=== PATIENT | male | born 1935 | race Caucasian/White ===

== ENCOUNTER 2016-07-01 10:26 | Emergency (ER) | payer OTHER ==
[~2016-07-01] VITALS: Ht 182.9 cm; Wt 82.0 kg
[~2016-07-01 10:26] MED LIST: DILT240C77 PO; HYDR25TA6 PO; LISI-170 PO; LOVA40TA2 PO
[2016-07-01 13:31] LABS: BLOOD UREA NITROGEN 34 mg/dL (7-18)
[2016-07-01 14:11] VITALS: BP 165/80
== END 2016-07-01 16:32 | disposition home or self-care (01) ==
LOC: ED 15:55
DX: R20.9 Unspecified disturbances of skin sensation (principal); I11.9 Hypertensive heart disease without heart failure
CPT/HCPCS: 36415; 80048; 82040; 85025; 85610; 85730; 93922; 93925; 99285

== ENCOUNTER 2016-08-30 05:34 | Emergency (ER) | payer OTHER ==
[~2016-08-30] VITALS: Ht 182.9 cm; Wt 81.8 kg
[2016-08-30 06:42] LABS: BLOOD UREA NITROGEN 29 mg/dL (7-18)
[2016-08-30 06:47] VITALS: BP 160/80
== END 2016-08-30 07:45 | disposition home or self-care (01) ==
LOC: ED 06:18
DX: N30.90 Cystitis, unspecified without hematuria (principal); N39.0 Urinary tract infection, site not specified; I10 Essential (primary) hypertension
CPT/HCPCS: 36415; 80048; 81001; 82040; 85025; 87086; 99284

== ENCOUNTER → 2016-10-15 | Outpatient (CLI) | payer OTHER ==
[2016-10-15 06:20] LABS: HEMATOCRIT 40.3 % (39.2-51.8); HEMOGLOBIN 13.8 g/dL (13.7-18.0); WHITE BLOOD COUNT 8.1 x10^3/uL (3.4-10)
[2016-10-15 06:33] LABS: ASPARTATE AMINO TRANSFERASE 19 U/L (15-37); BLOOD UREA NITROGEN 33 mg/dL (7-18)
== END | disposition home or self-care (01) ==
LOC: LAB 05:50
PROVIDERS: ATTEND Internal Medicine
DX: E78.2 Mixed hyperlipidemia (principal); I12.9 Hypertensive chronic kidney disease with stage 1 through stage 4 chronic kidney disease, or unspecified chronic kidney disease; N18.3 Chronic kidney disease, stage 3 (moderate); M10.9 Gout, unspecified
CPT/HCPCS: 36415; 80053; 80061; 82306; 85025

== ENCOUNTER 2018-03-29 13:57 | Inpatient (IN) | payer MEDICARE, OTHER ==
[~2018-03-29] VITALS: Ht 182.9 cm; Wt 75.3 kg
[~2018-03-29 13:57] MED LIST changes: +CLOP300T5 PO; +DILT120C64 PO; +FOLI-17 PO; +LOSA1TAB22 PO; +LOSA50TA14 PO; +PRAV40TA2 PO; +PRED20TA PO; +THIA100T67 PO
[2018-03-29] MEDS ORDERED: MORPHINE SULFATE 4 MG/ML, 1ML IVPush STA (14:06)
--- NOTE | 2018-03-29 14:22 | NUR ---
PT TO ED VIA [facility] FOR ABD PAIN X 2 MONTHS. [facility]. PT STATES LBM YESTERDAY BUT HE MAY BE CONSTIPATED. PA TO BEDSIDE FOR ASSESSMNET. ORDERS RECEIVED. X RACY COMPLETE AND LABS DRAWN. AWAITING RESULTS. CONNECTED TO ALL MONITORS. A FIB RATE CONTROLED NEAR 100 BPM, HTN. ALL OTHER VSS. CALL LIGHT WITHIN REACH. NO NEEDS AT THIS TIME.
[2018-03-29] MEDS ORDERED: SODIUM CHLORIDE FLUSH 10ML SYR IVF ONE (14:30)
[2018-03-29] MEDS ORDERED: ONDANSETRON 2MG/ML, 2ML IVPush ONE (14:30)
[2018-03-29 14:35] LABS: BASOPHILS # (AUTO) 0.04 x10^3/uL (0-0.1); BASOPHILS % (AUTO) 1 % (0-1); EOSINOPHILS # (AUTO) 0.02 x10^3/uL (0-0.4); EOSINOPHILS % (AUTO) 0 % (1-7); LYMPHOCYTES # (AUTO) 1.52 x10^3/uL (1-3.4); LYMPHOCYTES % (AUTO) 18 % (22-44); MD NO; MEAN CORPUSCULAR HGB CONC 32.8 g/dL (33.2-36.2); MEAN CORPUSCULAR VOLUME 91.4 fL (81-97); MEAN PLATELET VOLUME 8.3 fL (7.4-10.4); MONOCYTES # (AUTO) 0.64 x10^3/uL (0.2-0.8); MONOCYTES % (AUTO) 8 % (2-9); NEUTROPHILS % (AUTO) 74 % (42-75); PLATELET COUNT 221 x10^3/uL (130-400); RED BLOOD COUNT 4.85 x10^6/uL (4.38-5.82); RED CELL DISTRIBUTION WIDTH 14.9 % (9.4-14.8)
[2018-03-29 14:44] LABS: ALANINE AMINOTRANSFERASE 47 U/L (12-78); ALBUMIN 3.2 g/dL (3.4-5.0); ANION GAP 11 mmol/L (5-15); CHLORIDE 103 mmol/L (98-107); CREATININE 2.33 mg/dL (0.7-1.3)
[2018-03-29 14:47] LABS: ALKALINE PHOSPHATASE 218 U/L (45-117); BILIRUBIN,TOTAL 0.6 mg/dL (0.2-1.0); TOTAL PROTEIN 7.2 g/dL (6.4-8.2)
[2018-03-29] MEDS ORDERED: SODIUM CHLORIDE 0.9%, 500ML IVBOLUS ONE (16:30)
--- NOTE | 2018-03-29 17:47 | NUR ---
TASK RN: PT RESTING ON [facility]. NO ACUTE DISTRESS NOTED. PT REQUESTING TO BE TRANSFERRED TO ROOM UPSTAIRS. PT EDUCATED SOON A BED IS AVAILABLE, HE WILL BE ABLE TO TRANSFER. NO OTHER NEEDS REQUESTED AT THIS TIME.
[2018-03-29] MEDS ORDERED: ONDANSETRON 2MG/ML, 2ML IVPush PRN (18:30)
[2018-03-29] MEDS ORDERED: LABETALOL 5MG/ML, 20ML IVPush PRN (18:30)
[2018-03-29] MEDS ORDERED: BISACODYL 10 MG SUPP PR PRN (18:30)
[2018-03-29] MEDS ORDERED: POLYETHYLENE GLYCOL 17 GM PACKET PO PRN (18:30)
[2018-03-29 19:23] VITALS: BP 150/79
[2018-03-29] MEDS: SODIUM CHLORIDE 0.9% 1,000 ML IV SCH (20:13)
[2018-03-29] MEDS: PRAVASTATIN 40 MG TABLET PO SCH (20:14)
[2018-03-30 01:27] VITALS: BP 147/69
[2018-03-30] MEDS: morphine SULFATE 10 MG/ML, 1ML IVPush PRN (02:21)
[2018-03-30 04:49] LABS: BASOPHILS % (AUTO) 0 % (0-1); EOSINOPHILS # (AUTO) 0.01 x10^3/uL (0-0.4); EOSINOPHILS % (AUTO) 0 % (1-7); LYMPHOCYTES # (AUTO) 1.35 x10^3/uL (1-3.4); LYMPHOCYTES % (AUTO) 17 % (22-44); MD NO; MEAN CORPUSCULAR HEMOGLOBIN 30.3 pg (27.5-34.5); MEAN CORPUSCULAR HGB CONC 33.2 g/dL (33.2-36.2); MEAN CORPUSCULAR VOLUME 91.4 fL (81-97); MEAN PLATELET VOLUME 8.5 fL (7.4-10.4); MONOCYTES # (AUTO) 0.56 x10^3/uL (0.2-0.8); MONOCYTES % (AUTO) 7 % (2-9); NEUTROPHILS # (AUTO) 6.06 x10^3/uL (1.8-6.8); NEUTROPHILS % (AUTO) 76 % (42-75); PLATELET COUNT 192 x10^3/uL (130-400); RED BLOOD COUNT 4.48 x10^6/uL (4.38-5.82); RED CELL DISTRIBUTION WIDTH 14.6 % (9.4-14.8)
[2018-03-30 04:56] LABS: ALANINE AMINOTRANSFERASE 42 U/L (12-78); ALBUMIN 2.9 g/dL (3.4-5.0); ANION GAP 12 mmol/L (5-15); CALCIUM 10.6 mg/dL (8.5-10.1); CHLORIDE 109 mmol/L (98-107)
[2018-03-30 04:59] LABS: ALKALINE PHOSPHATASE 193 U/L (45-117); BILIRUBIN,TOTAL 0.6 mg/dL (0.2-1.0); CREATININE 2.14 mg/dL (0.7-1.3); TOTAL PROTEIN 6.7 g/dL (6.4-8.2)
[2018-03-30 07:35] VITALS: BP 164/70
[2018-03-30] MEDS: CLOPIDOGREL 75 MG TABLET PO SCH (08:27)
[2018-03-30] MEDS: SENNA/DOCUSATE TABLET PO SCH (08:27)
[2018-03-30] MEDS: THIAMINE 100MG TABLET PO SCH (08:27)
[2018-03-30] MEDS: DILTIAZEM 240 MG CAP.ER.24H PO SCH (08:27)
[2018-03-30] MEDS: FOLIC ACID 1 MG TABLET PO SCH (08:27)
[2018-03-30] MEDS: SODIUM CHLORIDE 0.9% 1,000 ML IV SCH ×2 (10:19→23:28)
[2018-03-30 13:21] VITALS: BP 172/76
[2018-03-30 19:33] VITALS: BP 158/66
[2018-03-30] MEDS: PRAVASTATIN 40 MG TABLET PO SCH (19:41)
[2018-03-31] VITALS (8 sets, daily range): BP systolic 146–200; BP diastolic 67–98
[2018-03-31] MEDS: FOLIC ACID 1 MG TABLET PO SCH (10:08)
[2018-03-31] MEDS: SENNA/DOCUSATE TABLET PO SCH (10:08)
[2018-03-31] MEDS: DILTIAZEM 240 MG CAP.ER.24H PO SCH (10:08)
[2018-03-31] MEDS: THIAMINE 100MG TABLET PO SCH (10:08)
[2018-03-31] MEDS: CLOPIDOGREL 75 MG TABLET PO SCH (10:08)
[2018-03-31] MEDS ORDERED: LABETALOL 20 MG/4 ML IVPush PRN (11:00)
[2018-03-31] MEDS: SODIUM CHLORIDE 0.9% 1,000 ML IV SCH (12:32)
[2018-03-31] MEDS: morphine SULFATE 10 MG/ML, 1ML IVPush PRN (12:33)
[2018-03-31] MEDS: LABETALOL 5 MG/ML SYRINGE IVPush PRN (17:09)
[2018-03-31] MEDS: PRAVASTATIN 40 MG TABLET PO SCH (21:00)
[2018-04-01] MEDS: SODIUM CHLORIDE 0.9% 1,000 ML IV SCH ×2 (01:20→13:02)
[2018-04-01 07:15] VITALS: BP 185/81
[2018-04-01] MEDS: DILTIAZEM 240 MG CAP.ER.24H PO SCH (10:28)
[2018-04-01] MEDS: morphine SULFATE 10 MG/ML, 1ML IVPush PRN (10:29)
[2018-04-01] MEDS: SENNA/DOCUSATE TABLET PO SCH (10:29)
[2018-04-01] MEDS: CLOPIDOGREL 75 MG TABLET PO SCH (10:29)
[2018-04-01] MEDS: LABETALOL 5 MG/ML SYRINGE IVPush PRN (10:29)
[2018-04-01] MEDS: FOLIC ACID 1 MG TABLET PO SCH (10:29)
[2018-04-01] MEDS: THIAMINE 100MG TABLET PO SCH (10:29)
== END 2018-04-01 14:00 | disposition hospice, home (50) | DRG 181 ==
LOC: ED 15:38 → EDIP 17:42 → 3NW 18:44
PROVIDERS: ADMIT Internal Medicine; ATTEND Internal Medicine
DX: C34.90 Malignant neoplasm of unspecified part of unspecified bronchus or lung (principal); C78.7 Secondary malignant neoplasm of liver and intrahepatic bile duct; C79.71 Secondary malignant neoplasm of right adrenal gland; E44.1 Mild protein-calorie malnutrition; N18.4 Chronic kidney disease, stage 4 (severe); G93.40 Encephalopathy, unspecified; G89.3 Neoplasm related pain (acute) (chronic); I12.9 Hypertensive chronic kidney disease with stage 1 through stage 4 chronic kidney disease, or unspecified chronic kidney disease; C44.90 Unspecified malignant neoplasm of skin, unspecified; E78.5 Hyperlipidemia, unspecified; E83.52 Hypercalcemia; F03.90 Unspecified dementia, unspecified severity, without behavioral disturbance, psychotic disturbance, mood disturbance, and anxiety; I25.10 Atherosclerotic heart disease of native coronary artery without angina pectoris; I71.4 Abdominal aortic aneurysm, without rupture; I73.9 Peripheral vascular disease, unspecified; K59.00 Constipation, unspecified; M10.9 Gout, unspecified; N28.1 Cyst of kidney, acquired; N32.89 Other specified disorders of bladder; Z66 Do not resuscitate; Z82.49 Family history of ischemic heart disease and other diseases of the circulatory system; Z86.73 Personal history of transient ischemic attack (TIA), and cerebral infarction without residual deficits; Z87.891 Personal history of nicotine dependence; Z95.1 Presence of aortocoronary bypass graft; Z95.5 Presence of coronary angioplasty implant and graft; Z95.820 Peripheral vascular angioplasty status with implants and grafts; Z68.22 Body mass index [BMI] 22.0-22.9, adult
CPT/HCPCS: 36415; 70450; 71045; 71250; 74176; 80053; 83690; 85025; 93005; 99285; G0378; J2405; J2270; J3490; J7030; J7040